=== PATIENT | male | born 1985 | race Caucasian/White ===

== ENCOUNTER 2017-10-04 18:47 | Emergency (ER) | payer SELFPAY ==
[~2017-10-04] VITALS: Ht 167.6 cm; Wt 114.0 kg
[2017-10-04 19:07] VITALS: Ht 167.6 cm; Wt 114.0 kg
[2017-10-04 22:26] VITALS: BP 129/87
== END 2017-10-04 22:26 | disposition home or self-care (01) ==
LOC: ED 18:47
DX: F41.0 Panic disorder [episodic paroxysmal anxiety] (principal)
CPT/HCPCS: 82962